=== PATIENT | male | born 1970 | race Caucasian/White ===

== ENCOUNTER 2022-08-28 14:20 | Emergency (ER) | payer OTHER ==
[2022-08-28] MEDS ORDERED: Diphtheria,Pertussis(Acell),Tetanus Vaccine 0.5 ML Syringe IM ONE (16:58)
== END 2022-08-28 17:46 ==
LOC: MW.ED 14:20
DX: T33.72XA Superficial frostbite of left knee and lower leg, initial encounter (principal); T33.71XA Superficial frostbite of right knee and lower leg, initial encounter; Z23 Encounter for immunization; X31.XXXA Exposure to excessive natural cold, initial encounter
CPT/HCPCS: 90471; 90715; 99283-25